=== PATIENT | female | born 1985 | race African-American/Black ===

== ENCOUNTER 2018-08-19 18:40 | Emergency (ER) | payer SELFPAY ==
[~2018-08-19] VITALS: Ht 152.4 cm; Wt 56.7 kg
[2018-08-19 19:15] VITALS: BP 107/64
== END 2018-08-19 21:10 | disposition left against medical advice (07) ==
LOC: ER 18:40
DX: S90.821A Blister (nonthermal), right foot, initial encounter (principal); Z53.21 Procedure and treatment not carried out due to patient leaving prior to being seen by health care provider; X58.XXXA Exposure to other specified factors, initial encounter; Y93.89 Activity, other specified; Y92.89 Other specified places as the place of occurrence of the external cause; Y99.8 Other external cause status